=== PATIENT | male | born 1980 | race Hispanic/Latino ===

== ENCOUNTER 2018-12-27 11:18 | Emergency (ER) | payer OTHER ==
[2018-12-27 11:19] VITALS: BMI 33.5
[2018-12-27 11:58] VITALS: TEMP 98.2
--- NOTE | 2018-12-27 12:23 | ED PDOC ---
Arrival/HPI - General Chief Complaint: ENT Problem Time Seen by Provider: 12/27/18 12:03 Historian: Patient - History of Present Illness Narrative History of Present Illness (Text): 12/27/18 12:27 38 year old male, with no significant past medical history, presents to the ED for evaluation of epistaxis since this morning. Patient reports sudden onset of bleeding from the left side but denies any trauma. Patient notes similar episode in the past in his right nostril, which did not require packing at the time. Patient denies any other associated somatic complaints. Patient denies any fevers, chills, headache, dizziness, chest pain, shortness of breath, dyspnea on exertion, cough, diaphoresis, abdominal pain, nausea, vomiting, diarrhea, back pain, neck pain, or any other complaints. Time/Duration: 1-3 hours Symptom Onset: Gradual Symptom Course: Unchanged Activities at Onset: Light Context: Home Past Medical History - Provider Review Nursing Documentation Reviewed: Yes - Psychiatric Hx Substance Use: No Family/Social History - Physician Review Nursing Documentation Reviewed: Yes Family/Social History: Unknown Family HX Smoking Status: Never Smoked Hx Alcohol Use: Yes Frequency of alcohol use: Daily Hx Substance Use: No Allergies/Home Meds Allergies/Adverse Reactions: Allergies No Known Allergies Allergy (Verified 12/27/18 11:58) Review of Systems - Physician Review All systems were reviewed & negative as marked: Yes - Review of Systems Constitutional: absent: Fevers ENT: Epistaxis Respiratory: absent: SOB, Cough Cardiovascular: absent: Chest Pain Gastrointestinal: absent: Abdominal Pain, Diarrhea, Nausea, Vomiting Genitourinary Male: absent: Dysuria, Urinary Output Changes Musculoskeletal: absent: Back Pain, Neck Pain Skin: absent: Rash Neurological: absent: Headache, Dizziness Endocrine: absent: Diaphoresis Psychiatric: absent: Anxiety Physical Exam - Physical Exam Narrative Physical Exam (Text): 12/27/18 12:33 Gen: VS reviewed, alert, well developed, well nourished, nontoxic, mild distress. ENT: normal pharynx. Active bleeding noted to left nostril. Eye: EOMI, PERRL. Neck: no JVD, supple, no adenopathy. CV: regular rate, regular rhythm, no rubs, no murmur, no gallops, S1, S2, pulses equal and strong. Pulm: no distress, clear to auscultation, no wheeze, no rhonchi, breath sounds equal, no rales. Abd: soft, nontender, no guarding, no rebound, no rigidity, normal bowel sounds. Ext: no edema. Skin: good color, no rash, no cyanosis. Psych: responds appropriately to questions, normal affect. Neuro: oriented x 3, CN2-12 intact grossly, motor intact, sensation intact. Vital Signs Reviewed: Yes Vital Signs Temp Pulse Resp BP Pulse Ox 12/27/18 11:45 98.2 F 116 H 20 153/105 H 96 Temperature: Afebrile Blood Pressure: Hypertensive Pulse: Tachycardic Respiratory Rate: Normal Appearance: Positive for: Well-Appearing, Non-Toxic, Comfortable Pain Distress: Mild Mental Status: Positive for: Alert and Oriented X 3 Medical Decision Making ED Course and Treatment: 12/27/18 12:34 Impression: 38 year old male presents to the ED for evaluation of left nostril epistaxis. Plan: -- Epistaxis management -- Reassess and disposition Prior Visits: Notes and results from previous visits were reviewed. Progress Notes: 12/27/18 13:08 left anterior epistaxis, no posterior bleeding, empiric antibiotics, refer to ENT for removal or return to the ED 12/27/18 17:26 patient was seen for left anterior nosebleed, bleeding mostly controlled with external pressure but the decision was made to pack nostril as there was a high likelihood of recurrent bleed. empirix abx given, patient did not exhibit any s/s of acute alcohol withdrawal. clinidine was given for elevated blood pressure. - EKG Interpretation EKG Interpretation (Text): 12/27/18 1151: sinus tach at 108 bpm, nml qrs, nml axis, lvh, no acute sttw abn Interpreted by ED Physician: Yes Procedures - Time-Out Type of Procedure: nasal packing Site of Procedure: left nostril Correct Procedure: Yes Physician Name: juan - Additional Procedures Progress: epistaxis management: left nostril was packed with 5.5 cm rapid rhino, soaked with lido without epi, balloon inflated to comfort, no bleeding observed. - Scribe Statement The provider has reviewed the documentation as recorded by the Scribe Aaron Sharpe. All medical record entries made by the Scribe were at my direction and personall y dictated by me. I have reviewed the chart and agree that the record accurately reflects my personal performance of the history, physical exam, medical decision making, and the department course for this patient. I have also personally directed, reviewed, and agree with the discharge instructions and disposition. Disposition/Present on Arrival - Present on Arrival Any Indicators Present on Arrival: No History of DVT/PE: No History of Uncontrolled Diabetes: No Urinary Catheter: No History of Decub. Ulcer: No History Surgical Site Infection Following: None - Disposition Have Diagnosis and Disposition been Completed?: Yes Diagnosis: Anterior epistaxis Disposition: HOME/ ROUTINE Disposition Time: 13:09 Patient Plan: Discharge Condition: STABLE Discharge Instructions (ExitCare): Nosebleeds Additional Instructions: follow up with ear,nose,throat doctor in 2-3 days to have the packing removed. come back to the ER in 2-3 days to have the packing removed if you cannot reach the specialist. Prescriptions: Amoxicillin/Clavulanate [Augmentin 875 MG-125 MG] 1 tab PO BID 3 Days #6 tab Referrals: FAMILY PROVIDER,NO [Primary Care Provider] - Follow up with primary Darron Hobson DO [Staff Provider] - Follow up with primary Forms: [employer] (Romansh)
[2018-12-27] MEDS ORDERED: Lidocaine 1% Inj (20ml) ONE (12:59)
[2018-12-27 14:20] VITALS: BP 152/96; PULSE 106; RESP 16; O2SAT 98
--- NOTE | 2018-12-27 16:06 | CARD ---
APPROVED REPORT Date of service: 12/27/2018 EKG Measurement Heart [id number] <Conclusion> Sinus tachycardia Minimal voltage criteria for LVH, may be normal variant
== END 2018-12-27 14:18 | disposition home or self-care (01) ==
LOC: ED 11:18
DX: R04.0 Epistaxis (principal)